=== PATIENT | female | born 1990 | race Caucasian/White ===

== ENCOUNTER 2019-01-13 16:48 | Emergency (ER) | payer SELFPAY ==
[2019-01-13 17:20] LABS: #Basophils 0.1 thou/uL (0.0-0.2); #Eosinphils 0.1 thou/uL (0.0-0.7); #Lymphocytes 2.2 thou/uL (1.20-3.40); #Monocytes 0.6 thou/uL (0.11-0.59); #Neutrophils 5.8 thou/uL (1.40-6.50); %Basophils 0.7 % (0.0-1.0); %Eosinophils 1.6 % (0.0-10.0); %Lymphocytes 25.2 % (21.0-51.0); %Monocytes 7.1 % (0.0-10.0); %Neutrophils 65.4 % (42.0-75.0); Hemoglobin 12.9 g/dL (12.0-16.0); Mean Corpuscular HGB CONC 34.5 g/dL (32.0-36.0); Mean Corpuscular Hemoglobin 29.8 pg (27.0-31.0); Mean Corpuscular Volume 86.3 fL (78.0-98.0); Mean Platelet Volume 7.5 fL (7.4-10.4); Platelet Count 272 thou/uL (130-400); Red Blood Cell (RBC) Count 4.32 mill/uL (4.20-5.40); White Blood Cell (WBC) Count 8.9 thou/uL (4.8-10.8)
[2019-01-13 17:26] LABS: BHCG - Serum Negative (NEGATIVE); Pregs Control Background? CLEAR/WHITE (CLR/WHITE); Pregs Control Bar Appear? YES (CONTROL BAR)
[2019-01-13 17:43] LABS: ALT (SGPT) 14 U/L (8-55); AST (SGOT) 19 U/L (5-34); Albumin 4.4 g/dL (3.5-5.0); Alkaline Phosphatase 51 U/L (40-150); Anion Gap 12 mmol/L (10-20); BUN (Urea Nitrogen) 13 mg/dL (7.0-18.7); Bilirubin, Total 0.4 mg/dL (0.2-1.2); Calc. Creatinine Clearance 0 mL/min (70-130); Calcium 9.3 mg/dL (7.8-10.44); Carbon Dioxide 23 mmol/L (22-29); Chloride 108 mmol/L (98-107); Estimated GFR-MDRD 80; Glucose 100 mg/dL (70-105); Potassium 3.6 mmol/L (3.5-5.1); Protein, Total 7.4 g/dL (6.0-8.3); Sodium 139 mmol/L (136-145)
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
[2019-01-13] MEDS ORDERED: HYDROcodone/Acetaminophen 5/325 mg Tablet ONE (18:34)
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
== END 2019-01-13 19:15 | disposition home or self-care (01) ==
LOC: ERS 16:48
DX: T14.8XXA Other injury of unspecified body region, initial encounter (principal); V43.52XA Car driver injured in collision with other type car in traffic accident, initial encounter
CPT/HCPCS: 36415; 71045; 74177; 80053; 84703; 85025

== ENCOUNTER 2020-09-10 14:38 | Outpatient (CLI) | payer BC ==
--- NOTE | 2020-09-10 15:22 | ULT ---
Thyroid sonogram HISTORY: Nontoxic goiter. FINDINGS: Right thyroid lobe is 5.9 cm length and isthmus is 1.0 cm thick. Heterogeneous echotexture without fo daisy mass. Left thyroid lobe measures up to 6.6 cm with a heterogeneous echotexture. Along the medial margin edgard r the isthmus is a very subtle, well-circumscribed oval solid almost isoechoic homogeneous nodule that measures up to 1.5 cm length by 0.9 cm width by 0.6 cm depth. TI RADS 3 mildly suspicious. Along the lateral margin is a lobular well circumscribed heterogeneous predominantly isoechoic nodule that is 1.7 cm length by 1.3 cm width by 1.2 cm depth. TI RADS 3 mildly suspicious. IMPRESSION : Diffusely enlarged thyroid gland. Correlate with clinical findings for Graves' disease. Left thyroid lobe nodules as detailed above. TI RADS 3 mildly suspicious. Based on the size, sonograp hic follow-up is appropriate to evaluate for stability at one, 3, and 5 years.
== END 2020-09-10 14:39 | disposition home or self-care (01) ==
LOC: BICULT 14:38
PROVIDERS: ATTEND Student in an Organized Health Care Education/Training Program
DX: E04.2 Nontoxic multinodular goiter (principal)
CPT/HCPCS: 76536